=== PATIENT | female | born 1985 | race African-American/Black ===

== ENCOUNTER → 2016-11-15 | Outpatient (CLI) | payer SELFPAY ==
--- NOTE | 2016-11-15 17:15 | RADIOLOGY REPORT (SQ) ---
EXAM DESCRIPTION: U/S [id number] TRNABD 1GES W/ODOP COMPLETED DATE/TIME: 11/15/2016 4:49 pm REASON FOR STUDY: ENCOUNTER FOR SUPERVISION OF OTHER NORMAL , FIRST TRIMESTER Z34.81 ENCOU NTER FOR SUPRVSN OF NORMAL , FIRST TRIM COMPARISON: None. TECHNIQUE: Transabdominal static and realtime grayscale images acquired of the pelvis. Additional se lected spectral and color Doppler images recorded. All images stored on PACs. bHCG: Not available. LIMITATIONS: None. FINDINGS: FETUS: Living intrauterine . EGA: 8 weeks 4 days VERONICA: 06/23/2017 FHR: 171 beats per minute. SUBCHORIONIC BLEED: No SIZE OF BLEED: Not applicable. UTERUS: 11.9 x 8.6 x 5.8 cm. No masses or anomalies. CERVICAL LENGTH: 3.3 cm Closed. RIGHT ADNEXA: Normal ovary. 2.8 x 2 x 1.7 cm. No adnexal free fluid. No adnexal masses. LEFT ADNEXA: Not seen. No adnexal free fluid. No adnexal masses. FREE FLUID: None. OTHER: There is a cystic space within endometrial canal adjacent to the gestational sac that measures 2.6 x 1.6 x 1.5 cm. There is no pole within this. IMPRESSION: There is a live intrauterine gestation of 8 weeks 4 days with estimated date of delivery of 06/23/2017. There is a 2nd cystic area within endometrial canal of uncertain etiology, possibly a failed 2nd gestation. Trimester of : First - 0 to 13 weeks. TECHNICAL DOCUMENTATION: JOB ID: [id number] [email or web address]- All Rights Reserved
== END ==
LOC: RAD 15:59
PROVIDERS: ATTEND Nurse Practitioner Women's Health
DX: Z34.81 Encounter for supervision of other normal pregnancy, first trimester (principal)
CPT/HCPCS: 76801

== ENCOUNTER 2017-06-18 05:02 | Inpatient (IN) | payer MEDICAID ==
[2017-06-15 13:11] LABS: APPEARANCE,URINE SLIGHTLY-CLOUDY; BILIRUBIN,URINE NEGATIVE (NEGATIVE); COLOR,URINE YELLOW; GLUCOSE, URINE NEGATIVE (NEGATIVE); KETONES,URINE NEGATIVE (NEGATIVE); LEUKOCYTE ESTERASE,URINE SMALL (NEGATIVE); NITRITE,URINE NEGATIVE (NEGATIVE); PROTEIN,URINE NEGATIVE (NEGATIVE); URINE SPECIFIC GRAVITY 1.021; UROBILINOGEN,URINE NEGATIVE mg/dL (<2.0)
[2017-06-15 13:12] LABS: ABSOLUTE EOSINOPHILS # (AUTO) 0.1 10^3/uL (0.0-0.6); ABSOLUTE LYMPHOCYTES (AUTO) 1.7 10^3/uL (0.5-4.7); ABSOLUTE MONOCYTES (AUTO) 0.4 10^3/uL (0.1-1.4); ABSOLUTE NEUT (AUTO) 4.9 10^3/uL (1.7-8.2); BASOPHILS % (AUTO) 0.5 % (0-2); EOSINOPHILS % (AUTO) 1.1 % (0-6); HEMATOCRIT 33.1 % (36.0-47.0); HEMOGLOBIN 11.1 g/dL (12.0-15.5); MEAN CORPUSCULAR HEMOGLOBIN 27.5 pg (27.0-33.4); MEAN CORPUSCULAR HGB CONC 33.4 g/dL (32.0-36.0); MEAN CORPUSCULAR VOLUME 83 fl (80-97); MONOCYTES % (AUTO) 6.2 % (3-13); PLATELET COUNT 226 10^3/uL (150-450); RED BLOOD COUNT 4.02 10^6/uL (3.72-5.28); RED CELL DISTRIBUTION WIDTH 15.2 % (11.5-14.0); SEGMENTED NEUTROPHILS % (AUTO) 68.2 % (42-78); TOTAL CELLS COUNTED % (AUTO) 100 %; WHITE BLOOD COUNT 7.2 10^3/uL (4.0-10.5)
[2017-06-15 13:41] LABS: URINE AMPHETAMINES SCREEN NEGATIVE; URINE BARBITURATES SCREEN NEGATIVE; URINE BENZODIAZEPINES SCREEN NEGATIVE; URINE COCAINE SCREEN NEGATIVE; URINE MARIJUANA (THC) SCREEN NEGATIVE; URINE METHADONE SCREEN NEGATIVE; URINE PHENCYCLIDINE SCREEN NEGATIVE
[2017-06-18] MEDS ORDERED: CEFAZOLIN 1 GM/D5W RTU 1 GM/50 ML RTUPB IV ONE (05:30)
[2017-06-18] MEDS ORDERED: RINGERS SOLUTION 1,000 ML IV PRN ×2 (05:32→06:00)
[2017-06-18] MEDS ORDERED: LIDOCAINE 0.5% INJ-PF (5 MG/ML) 50 ML SDV INFIL ONE (05:45)
[2017-06-18] MEDS ORDERED: FENTANYL CITRATE INJ/PF 100 MCG/2 ML AMPUL ONE (07:15)
[2017-06-18] MEDS ORDERED: LIDOCAINE 2% INJ-PF (20 MG/ML) 10 ML AMPUL ONE (07:15)
[2017-06-18] MEDS ORDERED: OXYTOCIN 10 UNIT/ML VIAL ONE (07:15)
[2017-06-18] MEDS ORDERED: MIDAZOLAM 2 MG/2 ML INJ ONE (07:15)
[2017-06-18] MEDS ORDERED: TETRACAINE HCL/PF 20MG/2ML AMPULE (SPINAL) ONE (07:16)
[2017-06-18] MEDS ORDERED: ACETAMINOPHEN 100 ML IV ONE (07:16)
[2017-06-18] MEDS ORDERED: OXYTOCIN/NORMAL SALINE 20 UNIT/1,000 ML RTUINJ ONE ×2 (07:20→10:04)
[2017-06-18] MEDS ORDERED: EPHEDRINE SULFATE INJ 50 MG/1 ML AMPULE ONE (07:31)
[2017-06-18] MEDS ORDERED: OXYCODONE-ACETAMINOPHEN 5-325 MG TABLET PO PRN ×3 (07:42→08:56)
[2017-06-18] MEDS ORDERED: FENTANYL CITRATE INJ/PF 100 MCG/2 ML AMPUL IV PRN ×3 (07:42)
[2017-06-18] MEDS ORDERED: PROMETHAZINE HCL INJ 25 MG/1 ML VIAL IV PRN ×3 (07:42→08:56)
[2017-06-18] MEDS ORDERED: ONDANSETRON HCL INJ/PF 4 MG/2 ML SDV IV PRN (07:42)
[2017-06-18] MEDS ORDERED: MEPERIDINE HCL/PF INJ 25 MG/1 ML DISP.SYRIN IV PRN (07:42)
[2017-06-18] MEDS ORDERED: MORPHINE SULFATE 10 MG/ML INJ IV PRN ×2 (07:42→08:56)
[2017-06-18] MEDS ORDERED: DIPHENHYDRAMINE HCL 50 MG/ML VIAL IV PRN (07:42)
[2017-06-18] MEDS ORDERED: MEASLES,MUMPS&RUBELLA VACC/PF 0.5 ML VIAL SUBCUT PRN (08:56)
[2017-06-18] MEDS ORDERED: OXYTOCIN/NORMAL SALINE 20 UNIT/1,000 ML RTUINJ IV PRN (08:56)
[2017-06-18] MEDS ORDERED: SIMETHICONE 80 MG TAB.CHEW PO PRN (08:56)
[2017-06-18] MEDS ORDERED: ACETAMINOPHEN 100 ML IV PRN (08:56)
[2017-06-18] MEDS ORDERED: DIPH/PERTUSS(ACELL)/TETANUS VAC/PF 0.5 ML SYR (>=10YO) IM PRN (08:56)
[2017-06-18] MEDS ORDERED: ACETAMINOPHEN 325 MG TABLET PO PRN (08:56)
--- NOTE | 2017-06-18 09:08 | OPERATIVE REPORT E ---
Operative Report NAME: DEVIN ROSARIO : 1985 AGE: 32Y DATE OF SURGERY: 06/18/2017 ROOM: 228 PREOPERATIVE DIAGNOSES: 1. IUP at 39 weeks and 1 day. 2. Previous . 3. Undesired fertility. POSTOPERATIVE DIAGNOSES: 1. IUP at 39 weeks and 1 day. 2. Previous . 3. Undesired fertility. OPERATION: Low-transverse hysterotomy section with [place] tubal ligation. SURGEON: LORIN BRINK M.D. ANESTHESIA: Dr. Harmon with a spinal. FINDINGS: Female in cephalic presentation with Apgars of 8 and 9. COMPLICATIONS: None. ESTIMATED BLOOD LOSS: 600 mL. SPECIMENS REMOVED: Bilateral fallopian tubes. PROCEDURE IN DETAIL: Patient was taken to the operating room, prepared, and draped in a normal sterile fashion in a supine position with a leftward tilt. A transverse skin incision was made with a scalpel following the patient's previous scar. This was carried through to the underlying layer of fascia with the same scalpel, and the fascia was excised and extended laterally with [place]. The rectus muscle was then sharply dissected from the fascia and the peritoneum and rectus muscle were divided sharply with the Bovie with good visualization of the bladder and the uterus. A bladder blade was inserted. The hysterotomy was nicked with a scalpel and extended laterally with surgeon finger fraction. The was then delivered atraumatically. The nose and mouth were suctioned with a suction bulb, the cord was clamped and cut, and the was handed off to awaiting pediatricians. The cord blood was collected. The placenta was removed manually. The uterus was exteriorized and cleared of clots and debris. The hysterotomy was closed with 0 Monocryl in a running, locked fashion. A second layer of the same suture was used to imbricate to ensure hemostasis. The fallopian tubes were then located and followed out to the fimbriated end. The Fabiola was placed on the left fallopian tube. The mesosalpinx was transected and a large 3 cm segment of the fallopian tube was tied off with 2 pieces of 2-0 chromic. The intermediate section was then removed with Metzenbaums, and the pedicles were made hemostatic with coagulation. This was repeated on the right fallopian tube without difficulty. The uterus was then returned to the abdomen. The pedicles were reinspected and found to be intact and hemostatic. The rectus muscle and peritoneum were reapproximated with a mattress stitch of 2-0 chromic. The fascia was closed with 0 Vicryl. The subcutaneous layer was closed with plain catgut. The skin was closed with 4-0 Vicryl. The patient tolerated the procedure well. Sponge, lap, and needle counts were correct x2, and the patient was taken to recovery in stable condition. DICTATING PHYSICIAN: LORIN BRINK M.D. [id number] PHY#: [id number] ID: [id number] JOB#: [id number] ACCT: [id number] cc:LORIN BRINK M.D. >
[2017-06-18] MEDS ORDERED: IRON FUM PO SCH (10:00)
[2017-06-18] MEDS ORDERED: FOLIC PO SCH (10:00)
[2017-06-18] MEDS ORDERED: PRENATAL VIT PO SCH (10:00)
[2017-06-18] MEDS ORDERED: MORPHINE SULFATE 10 MG/ML INJ ONE (10:14)
[2017-06-18] MEDS: FERROUS SULFATE 325 MG TABLET PO SCH (11:48)
[2017-06-18] MEDS: PRENATAL VITAMIN W DHA CAPSULE PO SCH ×2 (11:48)
[2017-06-18] MEDS: DOCUSATE SODIUM 100 MG CAPSULE PO SCH ×2 (11:48→17:38)
[2017-06-18] MEDS ORDERED: IBUPROFEN 800 MG TABLET PO SCH (12:00)
[2017-06-18] MEDS ORDERED: ONDANSETRON HCL INJ/PF 4 MG/2 ML SDV ONE (12:34)
[2017-06-18] MEDS ORDERED: KETOROLAC TROMETHAMINE 60 MG/2 ML SDV ONE (12:34)
[2017-06-18] MEDS ORDERED: METOCLOPRAMIDE HCL INJ/PF 10 MG/2 ML SDV ONE (12:34)
[2017-06-18] MEDS ORDERED: LIDOCAINE 2% INJ-PF (20 MG/ML) 2 ML AMPUL ONE (12:34)
[2017-06-18] MEDS ORDERED: DEXAMETHASONE SOD PHOSPHATE INJ 4 MG/1 ML VIAL ONE (12:34)
[2017-06-18] MEDS: KETOROLAC TROMETHAMINE INJ/PF 30 MG/1 ML SDV IV SCH ×2 (13:15→21:13)
[2017-06-18] MEDS: OXYCODONE-ACETAMINOPHEN 5-325 MG TABLET PO PRN ×2 (16:38→22:14)
[2017-06-19] MEDS: OXYCODONE-ACETAMINOPHEN 5-325 MG TABLET PO PRN ×3 (04:26→16:46)
[2017-06-19] MEDS: KETOROLAC TROMETHAMINE INJ/PF 30 MG/1 ML SDV IV SCH (05:29)
[2017-06-19 06:44] LABS: HEMATOCRIT 26.3 % (36.0-47.0); HEMOGLOBIN 8.8 g/dL (12.0-15.5); MEAN CORPUSCULAR HEMOGLOBIN 27.6 pg (27.0-33.4); MEAN CORPUSCULAR HGB CONC 33.2 g/dL (32.0-36.0); MEAN CORPUSCULAR VOLUME 83 fl (80-97); PLATELET COUNT 185 10^3/uL (150-450); RED BLOOD COUNT 3.18 10^6/uL (3.72-5.28); WHITE BLOOD COUNT 10.4 10^3/uL (4.0-10.5)
--- NOTE | 2017-06-19 09:31 | PDOC PROGRESS REPORT ---
Subjective-OB Progress Note for:: 06/19/17 Subjective: Doing well, no c/o, OOB to BR x 2, eating, drinking well, pain under control, voiding Physical Exam (OB) Vital Signs: Temp Pulse Resp BP Pulse Ox 98.6 F 65 18 116/48 L 98 06/19/17 08:37 06/19/17 08:37 06/19/17 08:37 06/19/17 08:37 06/19/17 08:37 Intake & Output 06/18/17 06/19/17 06/20/17 06:59 06:59 06:59 Intake Total 3410 240 Output Total 1800 500 Balance 1610 -260 Weight 103.419 kg - PIH/Pre-Eclampsia Clonus: Negative Headache: Absent Epigastric Pain: No Visual Changes: No - Dressing Removed: No - x2 small sites with dry drainage. Incision: Dressing, Well Approximated - Lochia Lochia Amount: Moderate 25-50 ml Lochia Color: Rubra/Red - Abdomen Description: Soft, Round Hernia Present: No Fundal Description: Firm Fundal Height: u/u - u/2 Objective-Diagnostic Laboratory: 06/19/17 06:29 06/19/17 06:29 WBC 10.4 RBC 3.18 L Hgb 8.8 L Hct 26.3 L MCV 83 MCH 27.6 MCHC 33.2 RDW 15.0 H Plt Count 185 Assessment and Plan(PN) - Assessment and Plan (1) Delivery by elective caesarean section Is this a current diagnosis for this admission?: Yes (2) Previous section Is this a current diagnosis for this admission?: Yes (3) Marijuana abuse Is this a current diagnosis for this admission?: Yes - Time Spent with Patient Time with patient: Less than 15 minutes Medications reviewed and adjusted accordingly: Yes - Disposition Anticipated Discharge: Home Within: within 48 hours
[2017-06-19] MEDS: FERROUS SULFATE 325 MG TABLET PO SCH (09:49)
[2017-06-19] MEDS: PRENATAL VITAMIN W DHA CAPSULE PO SCH ×2 (09:50→09:52)
[2017-06-19] MEDS: DOCUSATE SODIUM 100 MG CAPSULE PO SCH ×2 (09:50→16:45)
[2017-06-19] MEDS: IBUPROFEN 800 MG TABLET PO SCH ×3 (11:29→23:36)
[2017-06-20] MEDS: IBUPROFEN 800 MG TABLET PO SCH ×2 (05:31→12:56)
[2017-06-20] MEDS: PRENATAL VITAMIN W DHA CAPSULE PO SCH (09:56)
[2017-06-20] MEDS: DOCUSATE SODIUM 100 MG CAPSULE PO SCH (09:56)
[2017-06-20] MEDS: FERROUS SULFATE 325 MG TABLET PO SCH (09:56)
[2017-06-20] MEDS: OXYCODONE-ACETAMINOPHEN 5-325 MG TABLET PO PRN (10:02)
--- NOTE | 2017-06-20 10:27 | PDOC DISCHARGE SUMMARY ---
Final Diagnosis Discharge Date: 06/20/17 - Final Diagnosis (1) Delivery by elective caesarean section Is this a current diagnosis for this admission?: Yes (2) Previous section Is this a current diagnosis for this admission?: Yes Discharge Data - Discharge Medication Home Medications: Ferrous Sulfate [Iron] 325 mg PO DAILY 06/15/17 Vit 10/Iron Fum/Folic [Vitafol-Ob Caplet] 1 each PO DAILY 06/15/17 Reason(s) for Admission: Ceasarean Section-Repeat, Tubal Ligation Procedures: NST, Ultrasound, Management of Medical Complications Intrapartum Procedure(s): : Low Cervical, Transverse - Diagnosis Test Laboratory: Temp Pulse Resp BP Pulse Ox 97.9 F 73 20 116/76 99 06/20/17 08:34 06/20/17 08:34 06/20/17 08:34 06/20/17 08:34 06/20/17 08:34 06/15/17 06/15/17 06/19/17 12:20 12:40 06:29 RBC 4.02 3.18 L Hgb 11.1 L 8.8 L Hct 33.1 L 26.3 L Urine Opiates Screen NEGATIVE - Discharge information/Instructions Discharge Activity: Activity As Tolerated Discharge Diet: Regular Disposition: HOME, SELF-CARE Follow up with: [facility] in: 1
[2017-06-20 12:34] VITALS: BP 116/66
== END 2017-06-20 13:20 | disposition home or self-care (01) | DRG 766 ==
LOC: 2S 05:02
PROVIDERS: ADMIT Obstetrics & Gynecology; ATTEND Obstetrics & Gynecology
PROC: 0UB70ZZ Excision of Bilateral Fallopian Tubes, Open Approach (ICD-10-PCS; 2017-06-18)
PROC: 10D00Z1 Extraction of Products of Conception, Low, Open Approach (ICD-10-PCS; principal; 2017-06-18 07:45)
DX: O34.211 Maternal care for low transverse scar from previous cesarean delivery (principal); N85.8 Other specified noninflammatory disorders of uterus; O24.420 Gestational diabetes mellitus in childbirth, diet controlled; O99.02 Anemia complicating childbirth; D64.9 Anemia, unspecified; O99.214 Obesity complicating childbirth; E66.9 Obesity, unspecified; Z37.0 Single live birth; Z3A.39 39 weeks gestation of pregnancy; Z30.2 Encounter for sterilization; Z68.32 Body mass index [BMI] 32.0-32.9, adult
CPT/HCPCS: 1961; 36415; 59025; 80307; 81001; 82962; 85025; 85027; 86850; 86900; 86901; 88302; 94799; J0131; J1100; J1885; J2250; J2270; J2405; J2590; J2765; J3010; J3490